=== PATIENT | male | born 1980 | race Caucasian/White ===

== ENCOUNTER 2017-10-31 19:55 | Emergency (ER) | payer SELFPAY ==
[~2017-10-31] VITALS: Ht 185.4 cm; Wt 117.0 kg
[2017-10-31 21:04] LABS: BASO # 0.1 10*3/uL (0.0-0.1); BASO % 0.5 % (0.0-1.0); EOS # 0.2 10*3/uL (0.0-0.4); HEMOGLOBIN 16.6 g/dl (14.0-18.0); LYMPH # 2.7 10*3/uL (1.3-4.4); LYMPH % 24.3 % (27.0-41.0); MEAN CELL VOLUME 95.4 fl (80.0-94.0); MEAN CORPUSCULAR HGB CONC 34.6 g/dl (33.0-37.0); MEAN PLATELET VOLUME 10.2 fl (9.6-12.3); MONO # 0.7 10*3/uL (0.1-1.0); MONO % 6.7 % (3.0-9.0); NEUT # 7.3 10*3/uL (2.3-7.9); NEUT % 66.3 % (47.0-73.0); PLATELET COUNT AUTOMATED 243 10*3/uL (130-400); RED BLOOD COUNT 5.03 10*6/uL (4.50-5.90); RED CELL DISTRI WIDTH 12.3 % (0-14.5); WHITE BLOOD COUNT 11.1 10*3/uL (4.8-10.8)
[2017-10-31 21:09] LABS: URINE AMPHETAMINES < 1000 (1000ng/ml); URINE BARBITURATES < 200 (200ng/ml); URINE BENZODIAZEPINES < 200 (200ng/ml); URINE CANNABINOIDS (THC) < 50 (50ng/ml); URINE COCAINE < 300 (300ng/ml); URINE METHADONE < 300 (300ng/ml); URINE OPIATES < 300 (300ng/ml); URINE PHENCYCLIDINE < 25 (25ng/ml)
[2017-10-31 21:22] LABS: ALKALINE PHOSPHATASE 72 U/L (45-117); BUN 14 mg/dl (7-24); CHLORIDE 107 mmol/L (98-107); POTASSIUM 3.8 mmol/L (3.5-5.1); SGOT/AST 28 IU/L (3-35); SGPT/ALT 48 U/L (12-78); SODIUM 140 mmol/L (136-145); TOTAL PROTEIN 7.1 gm/dL (6.4-8.2)
[2017-10-31 21:24] LABS: TROPONIN I < 0.015 ng/ml (<0.045)
== END 2017-10-31 23:26 | disposition home or self-care (01) ==
LOC: ED 19:55
PROVIDERS: Emergency Medicine
DX: G43.909 Migraine, unspecified, not intractable, without status migrainosus (principal); F17.200 Nicotine dependence, unspecified, uncomplicated; I10 Essential (primary) hypertension; Z98.890 Other specified postprocedural states; Z86.73 Personal history of transient ischemic attack (TIA), and cerebral infarction without residual deficits

== ENCOUNTER 2017-12-17 17:13 | Emergency (ER) | payer BC ==
[~2017-12-17] VITALS: Wt 117.9 kg
[2017-12-17] MEDS ORDERED: CEPHALEXIN500 M1 PO (19:04)
== END 2017-12-17 19:10 | disposition home or self-care (01) ==
LOC: ED 17:13
DX: S61.011A Laceration without foreign body of right thumb without damage to nail, initial encounter (principal); Z23 Encounter for immunization; Z98.890 Other specified postprocedural states; W26.0XXA Contact with knife, initial encounter; Y93.89 Activity, other specified; Y92.090 Kitchen in other non-institutional residence as the place of occurrence of the external cause; Y99.9 Unspecified external cause status

== ENCOUNTER 2018-01-14 20:41 | Emergency (ER) | payer BC ==
[~2018-01-14] VITALS: Ht 185.4 cm; Wt 121.1 kg
--- NOTE | ~2018-01-14 | EKG ---
[place], [place] ELECTROCARDIOGRAM REPORT NAME: REMEDIOS RIDLEY UNIT #: [id number] ROOM: DOCTOR: EPIPHANY DRAFT REPORT BIRTHDATE: [birth year] [facility] Test Date: 2018-01-14 Test Time: 21:18:33 Pat Name: REMEDIOS RIDLEY Department: Room: Gender: Information Technology Data Analyst: : 1980 Requested By: RENE BEST PA-C Order Number: [id number] Reading MD: Measurements Intervals [place] Rate: 78 P: 22 LA: 148 QRS: 58 QRSD: 107 T: -4 QT: 391 QTc: 446 Interpretive Statements Sinus rhythm ST elev, probable normal early repol pattern No previous ECG available for comparison CM:EKGRPT:ELECTROCARDIOGRAM REPORT 17 22 RENE BEST PA-C EPIPHANY DRAFT REPORT RENE BEST PA-C
[~2018-01-14 20:41] MED LIST: CEPHALEXIN500 M1 PO
[2018-01-14 21:29] LABS: BASO # 0.1 10*3/uL (0.0-0.1); BASO % 0.5 % (0.0-1.0); EOS # 0.1 10*3/uL (0.0-0.4); HEMATOCRIT 45.6 % (42.0-52.0); HEMOGLOBIN 16.1 g/dl (14.0-18.0); LYMPH # 2.3 10*3/uL (1.3-4.4); LYMPH % 23.3 % (27.0-41.0); MEAN CELL VOLUME 94.4 fl (80.0-94.0); MEAN CORPUSCULAR HGB 33.3 pg (27.0-31.0); MEAN CORPUSCULAR HGB CONC 35.3 g/dl (33.0-37.0); MEAN PLATELET VOLUME 10.1 fl (9.6-12.3); MONO # 0.7 10*3/uL (0.1-1.0); MONO % 7.2 % (3.0-9.0); NEUT # 6.7 10*3/uL (2.3-7.9); NEUT % 67.6 % (47.0-73.0); PLATELET COUNT AUTOMATED 231 10*3/uL (130-400); RED BLOOD COUNT 4.83 10*6/uL (4.50-5.90); RED CELL DISTRI WIDTH 12.5 % (0-14.5); WHITE BLOOD COUNT 9.9 10*3/uL (4.8-10.8)
[2018-01-14 21:39] LABS: ACT PARTIAL THROMBO TIME 22.6 SECONDS (20.8-31.5)
[2018-01-14 21:47] LABS: ALKALINE PHOSPHATASE 65 U/L (45-117); BUN 12 mg/dl (7-24); CHLORIDE 106 mmol/L (98-107); CREATININE 1.12 mg/dL (0.70-1.30); POTASSIUM 3.8 mmol/L (3.5-5.1); SGOT/AST 24 IU/L (3-35); SGPT/ALT 52 U/L (12-78); SODIUM 139 mmol/L (136-145); TOTAL PROTEIN 7.3 gm/dL (6.4-8.2)
[2018-01-14 21:52] LABS: TROPONIN I < 0.015 ng/ml (<0.045)
[2018-01-14] MEDS ORDERED: PROAIR HFA8.5 GM INH (22:31)
[2018-01-14] MEDS ORDERED: ZITHROMAX250 MG PO (22:31)
[2018-01-14] MEDS ORDERED: PREDNISONE10 MG PO (22:31)
== END 2018-01-14 22:38 | disposition home or self-care (01) ==
LOC: ED 20:41
PROVIDERS: Physician Assistant
DX: J20.9 Acute bronchitis, unspecified (principal); J45.909 Unspecified asthma, uncomplicated; F17.200 Nicotine dependence, unspecified, uncomplicated

== ENCOUNTER 2018-04-17 17:56 | Emergency (ER) | payer BC ==
[~2018-04-17] VITALS: Wt 123.8 kg
--- NOTE | ~2018-04-17 | EKG ---
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 Aranda : 1980 Requested By: NEREYDA MARTINEZ DNP Order Number: [id number] Reading MD: Lyle Kent MD Measurements Intervals [place] Rate: 77 P: 23 DC: 153 QRS: 58 QRSD: 111 T: -25 QT: 397 QTc: 450 Interpretive Statements Sinus rhythm Borderline T abnormalities, inferior leads Minimal ST elevation, anterior leads Compared to ECG 01/14/2018 21:18:33 T-wave abnormality now present ST (T wave) deviation still present Electronically Signed On 04-18-2018 12:26:20 PST by Lyle Kent MD CM:EKGRPT:ELECTROCARDIOGRAM REPORT [id number] NEREYDA MARTINEZ DNP EPIPHANY DRAFT REPORT NEREYDA MARTINEZ DNP
[~2018-04-17 17:56] MED LIST changes: +PREDNISONE10 MG PO; +PROAIR HFA8.5 GM INH; +ZITHROMAX250 MG PO
[2018-04-17 18:40] LABS: BASO # 0.1 10*3/uL (0.0-0.1); BASO % 0.7 % (0.0-1.0); EOS # 0.1 10*3/uL (0.0-0.4); EOS % 2.1 % (1.0-4.0); HEMATOCRIT 42.9 % (42.0-52.0); HEMOGLOBIN 15.2 g/dl (14.0-18.0); LYMPH # 1.8 10*3/uL (1.3-4.4); LYMPH % 26.8 % (27.0-41.0); MEAN CELL VOLUME 93.9 fl (80.0-94.0); MEAN CORPUSCULAR HGB 33.3 pg (27.0-31.0); MEAN CORPUSCULAR HGB CONC 35.4 g/dl (33.0-37.0); MEAN PLATELET VOLUME 9.7 fl (9.6-12.3); MONO # 0.6 10*3/uL (0.1-1.0); MONO % 8.7 % (3.0-9.0); NEUT # 4.2 10*3/uL (2.3-7.9); NEUT % 61.4 % (47.0-73.0); PLATELET COUNT AUTOMATED 224 10*3/uL (130-400); RED BLOOD COUNT 4.57 10*6/uL (4.50-5.90); RED CELL DISTRI WIDTH 12.3 % (0-14.5); WHITE BLOOD COUNT 6.8 10*3/uL (4.8-10.8)
[2018-04-17 18:49] LABS: ACT PARTIAL THROMBO TIME 23.5 SECONDS (20.8-31.5)
[2018-04-17 18:55] LABS: ALBUMIN 3.7 gm/dl (3.1-4.5); ALKALINE PHOSPHATASE 66 U/L (45-117); BUN 12 mg/dl (7-24); CHLORIDE 108 mmol/L (98-107); CREATININE 1.13 mg/dL (0.70-1.30); LIPASE 119 U/L (73-393); POTASSIUM 3.6 mmol/L (3.5-5.1); SGOT/AST 28 IU/L (3-35); SGPT/ALT 54 U/L (12-78); SODIUM 139 mmol/L (136-145); TOTAL PROTEIN 6.8 gm/dL (6.4-8.2)
[2018-04-17 18:58] LABS: TROPONIN I < 0.015 ng/ml (<0.045)
[2018-04-17 19:22] LABS: BILIRUBIN NEGATIVE (NEGATIVE); BLOOD NEGATIVE (NEGATIVE); CLARITY CLEAR (CLEAR); COLOR YELLOW (YELLOW); GLUCOSE NEGATIVE (NEGATIVE); KETONE TRACE (NEGATIVE); LEUKO ESTERASE NEGATIVE (NEGATIVE); NITRITE NEGATIVE (NEGATIVE); PH 6.5 (5.0-9.0)
[2018-04-17 19:52] LABS: BACTERIA 1+; EPITHELIAL CELLS 0-2; MUCOUS TRACE; RBC 0-2 rbc/hpf (0-2); WBC 0-2 wbc/hpf (0-5)
== END 2018-04-17 20:15 | disposition left against medical advice (07) ==
LOC: ED 17:56
PROVIDERS: Nurse Practitioner Family
DX: R42 Dizziness and giddiness (principal); R55 Syncope and collapse; R51 Headache; I10 Essential (primary) hypertension; F17.200 Nicotine dependence, unspecified, uncomplicated; Z86.73 Personal history of transient ischemic attack (TIA), and cerebral infarction without residual deficits; Z79.899 Other long term (current) drug therapy; Z79.2 Long term (current) use of antibiotics

== ENCOUNTER 2018-04-23 19:27 | Emergency (ER) | payer BC ==
[~2018-04-23] VITALS: Ht 185.4 cm; Wt 122.5 kg
[2018-04-23] MEDS ORDERED: ATARAX,VISTARIL50 MG PO (20:07)
== END 2018-04-23 19:56 | disposition home or self-care (01) ==
LOC: ED 19:27
DX: R42 Dizziness and giddiness (principal); R11.0 Nausea; R51 Headache; H53.8 Other visual disturbances; Z79.2 Long term (current) use of antibiotics; Z79.899 Other long term (current) drug therapy

== ENCOUNTER 2018-06-12 17:47 | Emergency (ER) | payer BC ==
[~2018-06-12] VITALS: Ht 185.4 cm; Wt 124.7 kg
[~2018-06-12 17:47] MED LIST changes: +ATARAX,VISTARIL50 MG PO
[2018-06-12] MEDS ORDERED: FLONASE ALLERG9.9 ML NAS (19:19)
[2018-06-12] MEDS ORDERED: CORTISPORIN SUS10 ML OT (19:19)
[2018-06-12] MEDS ORDERED: PREDNISONE50 MG PO (19:19)
== END 2018-06-12 19:55 | disposition home or self-care (01) ==
LOC: ED 17:47
DX: H60.93 Unspecified otitis externa, bilateral (principal); J04.0 Acute laryngitis; J02.9 Acute pharyngitis, unspecified; F17.200 Nicotine dependence, unspecified, uncomplicated; Z79.2 Long term (current) use of antibiotics; Z79.899 Other long term (current) drug therapy

== ENCOUNTER 2018-09-30 15:57 | Emergency (ER) | payer BC ==
[~2018-09-30] VITALS: Ht 185.4 cm; Wt 124.7 kg
[~2018-09-30 15:57] MED LIST changes: +CORTISPORIN SUS10 ML OT; +FLONASE ALLERG9.9 ML NAS; +PREDNISONE50 MG PO
[2018-09-30] MEDS ORDERED: PREDNISONE50 MG PO (16:50)
== END 2018-09-30 16:50 | disposition home or self-care (01) ==
LOC: ED 15:57
DX: J45.901 Unspecified asthma with (acute) exacerbation (principal); Z79.2 Long term (current) use of antibiotics; Z79.899 Other long term (current) drug therapy

== ENCOUNTER 2019-05-25 14:57 | Emergency (ER) | payer OTHER ==
[~2019-05-25] VITALS: Wt 102.1 kg
[2019-05-25] MEDS ORDERED: CYCLOBENZAPRINE10 MG PO (17:19)
== END 2019-05-25 17:22 | disposition home or self-care (01) ==
LOC: ED 14:57
DX: M43.6 Torticollis (principal); M25.512 Pain in left shoulder; I10 Essential (primary) hypertension; Z86.73 Personal history of transient ischemic attack (TIA), and cerebral infarction without residual deficits; Z79.899 Other long term (current) drug therapy

== ENCOUNTER 2020-08-07 14:03 | Emergency (ER) | payer OTHER ==
[~2020-08-07] VITALS: Wt 129.3 kg
[~2020-08-07 14:03] MED LIST changes: +CYCLOBENZAPRINE10 MG PO
[2020-08-07] MEDS ORDERED: MUCINEX1200 M1 PO (15:17)
[2020-08-07] MEDS ORDERED: TESSALON PERLE100 MG PO (15:17)
[2020-08-07] MEDS ORDERED: PROVENTIL HFA6.7 GM INH (15:17)
[2020-08-07] MEDS ORDERED: CLARITIN10 MG PO (15:17)
[2020-08-07] MEDS ORDERED: MOMETASONE FURO17 GM NAS (15:17)
== END 2020-08-07 15:24 | disposition home or self-care (01) ==
LOC: ED 14:03
DX: J30.9 Allergic rhinitis, unspecified (principal); I10 Essential (primary) hypertension; F17.200 Nicotine dependence, unspecified, uncomplicated; Z91.013 Allergy to seafood; Z98.890 Other specified postprocedural states

== ENCOUNTER 2021-06-10 17:52 | Emergency (ER) | payer OTHER ==
[~2021-06-10] VITALS: Ht 185.4 cm; Wt 140.6 kg
[~2021-06-10 17:52] MED LIST changes: +CLARITIN10 MG PO; +MOMETASONE FURO17 GM NAS; +MUCINEX1200 M1 PO; +PROVENTIL HFA6.7 GM INH; +TESSALON PERLE100 MG PO
[2021-06-10 18:54] LABS: BASO # 0.1 10*3/uL (0.0-0.1); BASO % 0.6 % (0.0-1.0); EOS # 0.1 10*3/uL (0.0-0.4); EOS % 1.5 % (1.0-4.0); HEMATOCRIT 41.3 % (42.0-52.0); LYMPH # 2.6 10*3/uL (1.3-4.4); LYMPH % 31.3 % (27.0-41.0); MEAN CELL VOLUME 94.1 fl (80.0-94.0); MEAN CORPUSCULAR HGB 33.9 pg (27.0-31.0); MEAN CORPUSCULAR HGB CONC 36.1 g/dl (33.0-37.0); MEAN PLATELET VOLUME 9.9 fl (9.6-12.3); MONO # 0.7 10*3/uL (0.1-1.0); MONO % 7.9 % (3.0-9.0); NEUT # 4.8 10*3/uL (2.3-7.9); NEUT % 58.6 % (47.0-73.0); PLATELET COUNT AUTOMATED 218 10*3/uL (130-400); RED BLOOD COUNT 4.39 10*6/uL (4.50-5.90); RED CELL DISTRI WIDTH 12.2 % (0-14.5); WHITE BLOOD COUNT 8.2 10*3/uL (4.8-10.8)
[2021-06-10 19:09] LABS: ALBUMIN 3.7 gm/dl (3.1-4.5); ALKALINE PHOSPHATASE 65 U/L (45-117); BUN 18 mg/dl (7-24); CHLORIDE 109 mmol/L (98-107); CREATININE 1.23 mg/dL (0.70-1.30); LIPASE 111 U/L (73-393); POTASSIUM 3.6 mmol/L (3.5-5.1); SGOT/AST 59 IU/L (3-35); SGPT/ALT 146 U/L (12-78); SODIUM 141 mmol/L (136-145); TOTAL PROTEIN 6.9 gm/dL (6.4-8.2)
[2021-06-10 19:18] LABS: BILIRUBIN Negative (Negative); BLOOD Negative (Negative); CLARITY Clear (Clear); COLOR Yellow (Yellow); GLUCOSE Negative (Negative); KETONE Trace (Negative); LEUKO ESTERASE Negative (Negative); NITRITE Negative (Negative); PH 6.5 (4.5-8.0); SPECIFIC GRAVITY 1.025 (1.001-1.030)
[2021-06-10 19:35] LABS: BACTERIA TRACE; WBC 0-2 wbc/hpf (0-5)
[2021-06-10] MEDS ORDERED: METHOCARBAMOL500 M1 PO (20:47)
[2021-06-10] MEDS ORDERED: PREDNISONE20 M1 PO (20:47)
== END 2021-06-10 21:22 | disposition home or self-care (01) ==
LOC: ED 17:52
PROVIDERS: Physician Assistant
DX: R10.32 Left lower quadrant pain (principal); M54.16 Radiculopathy, lumbar region; I10 Essential (primary) hypertension; J45.909 Unspecified asthma, uncomplicated; Z91.013 Allergy to seafood; Z98.890 Other specified postprocedural states

== ENCOUNTER 2022-10-10 05:50 | Emergency (ER) | payer OTHER ==
[~2022-10-10] VITALS: Ht 185.4 cm; Wt 140.6 kg
[~2022-10-10 05:50] MED LIST changes: +METHOCARBAMOL500 M1 PO; +PREDNISONE20 M1 PO
[2022-10-10 06:46] LABS: BASO # 0.1 10*3/uL (0.0-0.1); BASO % 0.7 % (0.0-1.0); EOS # 0.1 10*3/uL (0.0-0.4); EOS % 1.3 % (1.0-4.0); HEMATOCRIT 41.8 % (42.0-52.0); LYMPH % 23.4 % (27.0-41.0); MEAN CELL VOLUME 93.9 fl (80.0-94.0); MEAN CORPUSCULAR HGB 33.3 pg (27.0-31.0); MEAN CORPUSCULAR HGB CONC 35.4 g/dl (33.0-37.0); MEAN PLATELET VOLUME 9.9 fl (9.6-12.3); MONO # 0.7 10*3/uL (0.1-1.0); MONO % 8.4 % (3.0-9.0); NEUT # 5.5 10*3/uL (2.3-7.9); NEUT % 65.7 % (47.0-73.0); PLATELET COUNT AUTOMATED 221 10*3/uL (130-400); RED BLOOD COUNT 4.45 10*6/uL (4.50-5.90); RED CELL DISTRI WIDTH 12.3 % (0-14.5); WHITE BLOOD COUNT 8.4 10*3/uL (4.8-10.8)
[2022-10-10 06:58] LABS: ACT PARTIAL THROMBO TIME 25.8 SECONDS (20.0-32.1)
[2022-10-10 07:10] LABS: ALKALINE PHOSPHATASE 71 U/L (46-116); BUN 11 mg/dl (9-23); CHLORIDE 100 mmol/L (98-107); POTASSIUM 3.1 mmol/L (3.4-5.1); SGPT/ALT 108 U/L (10-49); TOTAL PROTEIN 6.7 gm/dL (6.0-8.0)
[2022-10-10] MEDS ORDERED: Motrin,Rufen800 MG PO (09:28)
[2022-10-10] MEDS ORDERED: HYDROCODONE-AC1 EAC1 PO (09:28)
== END 2022-10-10 09:36 | disposition home or self-care (01) ==
LOC: ED 05:50
PROVIDERS: Emergency Medicine
DX: S16.1XXA Strain of muscle, fascia and tendon at neck level, initial encounter (principal); S89.92XA Unspecified injury of left lower leg, initial encounter; Z91.013 Allergy to seafood; Z98.890 Other specified postprocedural states; V63.9XXA Unspecified occupant of heavy transport vehicle injured in collision with car, pick-up truck or van in traffic accident, initial encounter; Y93.89 Activity, other specified; Y92.410 Unspecified street and highway as the place of occurrence of the external cause; Y99.0 Civilian activity done for income or pay

== ENCOUNTER 2023-09-20 20:02 | Emergency (ER) | payer BC ==
[~2023-09-20] VITALS: Ht 185.4 cm; Wt 138.8 kg
[~2023-09-20 20:02] MED LIST changes: +HYDROCODONE-AC1 EAC1 PO; +Motrin,Rufen800 MG PO
[2023-09-20] MEDS ORDERED: ALLERGY RELIEF10 M2 PO (20:08)
[2023-09-20] MEDS ORDERED: AMOX-CLAV 875-1 EACH PO (20:09)
== END 2023-09-20 20:26 | disposition home or self-care (01) ==
LOC: ED 20:02
DX: S01.312A Laceration without foreign body of left ear, initial encounter (principal); I10 Essential (primary) hypertension; J45.909 Unspecified asthma, uncomplicated; R42 Dizziness and giddiness; Z86.73 Personal history of transient ischemic attack (TIA), and cerebral infarction without residual deficits; Z91.013 Allergy to seafood; Z98.890 Other specified postprocedural states; X58.XXXA Exposure to other specified factors, initial encounter; Y93.89 Activity, other specified; Y92.009 Unspecified place in unspecified non-institutional (private) residence as the place of occurrence of the external cause; Y99.8 Other external cause status

== ENCOUNTER 2023-12-30 14:41 | Emergency (ER) | payer BC ==
[~2023-12-30] VITALS: Ht 182.8 cm; Wt 138.3 kg
[~2023-12-30 14:41] MED LIST changes: +ALLERGY RELIEF10 M2 PO; +AMOX-CLAV 875-1 EACH PO
[2023-12-30] MEDS ORDERED: METHOCARBAMOL 750 MG TAB PO ONE (15:40)
[2023-12-30] MEDS ORDERED: DEXAMETHASONE 4 MG TAB PO ONE (15:40)
[2023-12-30] MEDS ORDERED: METHOCARBAMOL750 M1 PO (16:08)
[2023-12-30] MEDS ORDERED: PREDNISONE50 MG PO (16:08)
== END 2023-12-30 16:19 | disposition home or self-care (01) ==
LOC: ED 14:41
DX: M62.830 Muscle spasm of back (principal); I10 Essential (primary) hypertension; J45.909 Unspecified asthma, uncomplicated; Z86.73 Personal history of transient ischemic attack (TIA), and cerebral infarction without residual deficits; Z91.013 Allergy to seafood; Z98.890 Other specified postprocedural states